=== PATIENT | female | born 1990 ===

== ENCOUNTER 2019-08-17 11:35 | Inpatient (IN) ==
[2019-08-17] MEDS ORDERED: LACTATED RINGER'S 1,000 ML IV PRN (12:08)
[2019-08-17] MEDS ORDERED: OXYTOCIN 30 UNITS/500 ML BAG IV PRN ×2 (12:08→15:45)
--- NOTE | 2019-08-17 12:15 | Obstetrical Progress Note ---
Date of Service August 17, 2019 Physical Exam Physical Exam: Admit Note 29 F P2002 at term admitted to L&D in active labor. Cervix4-5/100/-2/vertex. GBS is negative. FHT Cat 1. No membranes felt so probable spontaneous rupture at home. Will admit in labor. Anticipate normal delivery.
[2019-08-17 12:33] LABS: Hematocrit (blood only) 37.4 % (37-47); Mean Corpuscular Hemoglobin 29.3 pg (25-34); Mean Corpuscular Volume 84.4 fL (80-100); Mean Platelet Volume 9.9 fL (7.4-10.4); Platelet Count 180 K/uL (130-400); RDW Coefficient of Variation 12.7 % (11.5-14.5); RDW Standard Deviation 38.9 fL (36.4-46.3); Red Blood Count 4.43 M/uL (4.2-5.4); White Blood Count 9.74 K/uL (4.8-10.8)
[2019-08-17 12:37] LABS: Mean Corpuscular Hgb Conc 34.8 g/dL (32-36)
[2019-08-17] MEDS ORDERED: ePHEDrine sulfate 50 MG/ML AMP ONE (13:12)
[2019-08-17] MEDS ORDERED: BUPIVACAINE 0.25% 30 ML VIAL ONE (13:12)
[2019-08-17] MEDS ORDERED: fentaNYL citrate 100 MCG/2 ML VIAL ONE (13:13)
[2019-08-17] MEDS ORDERED: fentaNYL 2MCG/ML ROPIV 1.25MG/ML 100 ML BAG EPI ONE (13:13)
[2019-08-17] MEDS ORDERED: DiphenhydrAMINE HCL 50 MG/ML VIAL IV PRN (13:32)
[2019-08-17] MEDS ORDERED: ePHEDrine sulfate 50 MG/ML AMP IV PRN (13:32)
[2019-08-17] MEDS ORDERED: NALOXONE HCL 1 MG in SODIUM CHLORIDE 0.9% 1000ML 1,000 ML IV PRN (13:32)
[2019-08-17] MEDS ORDERED: fentaNYL 2MCG/ML ROPIV 1.25MG/ML 100 ML BAG EPI PRN (13:32)
[2019-08-17] MEDS ORDERED: NALOXONE HCL 0.4 MG/1 ML VIAL/CARP IV PRN (13:32)
[2019-08-17] MEDS ORDERED: ONDANSETRON INJ 2 MG/ML 2 ML VIAL IV PRN (13:32)
[2019-08-17] MEDS ORDERED: NALBUPHINE HCL INJ 10 MG/ML AMP IV PRN (13:32)
--- NOTE | 2019-08-17 13:34 | Anesthesiology Consultation ---
Date of Service August 17, 2019 Assessment & Plan Chart Review Chart Review: Patient NOT seen in Pre Admission Testing and Acceptable Risk for Labor Epidural Consults Requested none ASA ASA2 Proposed Anesthesia Anesthesia Type: Labor Epidural and CSE Risk / Benefits Reviewed With: PT / POA / Parent / Guardian, Accepts Plan and Informed Consent Obtained History Height/Weight Height: 5 ft 7 in Weight: 67.3 kg Allergies Allergy/AdvReac Type Severity Reaction Status Date / Time No Known Allergies Allergy Unverified 08/17/19 12:23 Medications Home Medications Medication Instructions Recorded Confirmed Last Taken vit no.[id number]-[id number] 1 tab PO DAILY 08/17/19 08/17/19 08/16/19 08:00 [ Vitamin] Active Medications Generic Name Dose Route Start Last Admin Trade Name Freq PRN Reason Stop Dose Admin Lactated Ringer's 1,000 mls @ 125 mls/hr 08/17/19 12:08 08/17/19 13:07 Lr IV 08/19/19 12:07 999 mls/hr .Q8H PRN Administration L&D Protocol Protocol NPO Date Last Intake of Fluids: 08/17/19 Time Last Intake of Fluids: 13:00 Date Last Intake of Solids: 08/16/19 Time Last Intake of Solids: 17:00 Past Medical History Medical History Recent childbirth (~11/13/13) Recent childbirth (~12/25/11) Exercise / Class Metabolic Activity II 4-5 Yardwork/Stairs/Walk up hill Past Surgical History Surgical History S/P hernia repair (~89) Past Anesthesia History No Hx of Anesthesia Complications and No Family Hx of Anesthesia Complications History of PONV No Hx of PONV and No Hx of Motion Sickness Social History Smoking Status: Never smoker Do You Dip or Chew Tobacco: No Hx Alcohol Use: No Hx Substance Use: No Review of Systems no chest pain or sob Physical Exam Vital Signs Last Vital Signs Temp 36.4 C L 08/17/19 12:31 Pulse 86 08/17/19 13:35 Resp 20 08/17/19 12:31 BP 123/79 08/17/19 12:37 Pulse Ox 94 08/17/19 13:35 ENMT Mouth: no TMJ abnormality Thyromental Distance: > or= 3.5 Finger Breadths Mallampati Class: II Neck normal visual inspection Respiratory normal respiratory effort Auscultation: lungs clear to auscultation bilaterally Cardiovascular Rate/Rhythm: regular rate and regular rhythm Musculoskeletal Spine: normal cervical ROM Neurologic moves all extremities Psychiatric Orientation: alert and oriented x 3 Testing Laboratory Results 08/17/19 12:23
--- NOTE | 2019-08-17 15:00 | Delivery Summary ---
Vaginal Delivery Summary Date of Service August 17, 2019 Vaginal Delivery Summary Delivery Note live male LYNN over intact perineum with delayed cord clamping Apgars 8/9 weight pending. Cord blood obtained followed by spontaneous delivery of intact placenta. No tears. EBL 100 ml. Final sponge and instrument count are correct. Mom and baby stable.
[2019-08-17] MEDS ORDERED: SUPERCREAM 0.870% 15 GM JAR EXT PRN (15:45)
[2019-08-17] MEDS ORDERED: DIPHTHERIA/TETANUS/PERTUSSIS 0.5 ML SYR/VIAL IM ONE (15:45)
[2019-08-17] MEDS ORDERED: BENZOCAINE 20% AER SPR 82.5 GM CAN EXT PRN (15:45)
[2019-08-17] MEDS ORDERED: IBUPROFEN 600 MG TAB PO PRN (15:45)
[2019-08-17] MEDS ORDERED: bisacodyL 10 MG SUPP PR PRN (15:45)
[2019-08-17] MEDS ORDERED: ACETAMINOPHEN 325 MG TAB PO PRN (15:45)
[2019-08-17] MEDS ORDERED: HYDROCORTISONE ACETATE 25 MG SUPP PR PRN (15:45)
--- NOTE | 2019-08-17 16:08 | Anesthesia Procedure Note ---
Date of Service August 17, 2019 Anesthesia Post Epidural Note Vital Signs Vital Signs: Temp Pulse Resp BP Pulse Ox 36.4 C L 61 16 132/63 99 08/17/19 14:43 08/17/19 15:58 08/17/19 14:43 08/17/19 15:58 08/17/19 14:40 Pain Intensity Abdomen: Pain Intensity: 0 Notes Mental Status: alert / awake / arousable and participated in evaluation Nausea / Vomiting: adequately controlled Pain: adequately controlled Airway Patency, RR, SpO2: stable & adequate BP & HR: stable & adequate Hydration State: stable & adequate Neuraxial Anesthesia: was administered and sensory block is resolving Anesthetic Complications: no major complications apparent and Pt Satisfied with anesthetic care Epidural: Removed without complications and With tip intact
[2019-08-17] MEDS ORDERED: HYDROCORTISONE 1% CRM 30 GM TUBE EXT PRN (19:12)
[2019-08-17] MEDS: DOCUSATE SODIUM 100 MG CAP PO SCH (20:16)
[2019-08-18 05:49] LABS: Hematocrit (blood only) 33.6 % (37-47); Hemoglobin 11.5 g/dL (12.0-16.0); Mean Corpuscular Hemoglobin 29.4 pg (25-34); Mean Corpuscular Hgb Conc 34.2 g/dL (32-36); Mean Corpuscular Volume 85.9 fL (80-100); Mean Platelet Volume 9.7 fL (7.4-10.4); Platelet Count 169 K/uL (130-400); RDW Coefficient of Variation 12.9 % (11.5-14.5); RDW Standard Deviation 40.1 fL (36.4-46.3); Red Blood Count 3.91 M/uL (4.2-5.4); White Blood Count 11.35 K/uL (4.8-10.8)
--- NOTE | 2019-08-18 07:56 | Obstetrical Progress Note ---
Date of Service August 18, 2019 Assessment & Plan Admission and Anticipated Discharge Date Admission Date: August 17, 2019 Subjective Patient is seen and examined. She feels well, no complaints. Wants to be discharged today Ambulating without dizziness Voiding without difficulty Tolerating regular diet with out N&V Bleeding is minimal No fever/ chills/ CP/ SOB/ N&V/ Leg pain Breast feeding without problems Vital Signs Temp Pulse Pulse Pulse Resp BP BP 08/18/19 07:10 36.7 C 68 16 115/76 08/18/19 03:50 36.7 C 68 18 108/70 08/17/19 23:15 36.8 C 73 18 108/68 08/17/19 19:15 36.5 C 84 20 113/72 08/17/19 17:20 100 H 22 118/64 08/17/19 16:58 100 H 118/64 08/17/19 16:43 96 H 117/61 08/17/19 16:28 78 115/57 L 08/17/19 16:13 62 117/58 L 08/17/19 15:58 61 132/63 08/17/19 15:43 65 151/91 H 08/17/19 15:28 67 125/75 08/17/19 15:13 75 120/68 08/17/19 14:58 100 H 113/69 08/17/19 14:43 36.4 C L 101 H 16 109/68 08/17/19 14:40 123 H 08/17/19 14:37 118 H 08/17/19 14:35 116 H 08/17/19 14:30 92 H 08/17/19 14:28 83 116/70 08/17/19 14:25 92 H 08/17/19 14:20 84 08/17/19 14:15 83 08/17/19 14:14 73 105/63 08/17/19 14:10 93 H 08/17/19 14:05 89 08/17/19 14:00 95 H 08/17/19 13:58 96 H 103/64 08/17/19 13:56 100 H 98/51 L 08/17/19 13:55 94 H 08/17/19 13:54 80 119/60 08/17/19 13:52 85 90/54 L 08/17/19 13:50 69 08/17/19 13:48 36.6 C 115 H 20 116/80 08/17/19 13:45 120 H 08/17/19 13:40 119 H 08/17/19 13:35 86 08/17/19 12:37 92 H 123/79 08/17/19 12:31 36.4 C L 92 H 20 123/79 Pulse Ox 08/18/19 07:10 96 08/18/19 03:50 96 08/17/19 23:15 97 08/17/19 19:15 97 08/17/19 17:20 08/17/19 16:58 08/17/19 16:43 08/17/19 16:28 08/17/19 16:13 08/17/19 15:58 08/17/19 15:43 08/17/19 15:28 08/17/19 15:13 08/17/19 14:58 08/17/19 14:43 08/17/19 14:40 99 08/17/19 14:37 90 08/17/19 14:35 99 08/17/19 14:30 100 08/17/19 14:28 08/17/19 14:25 100 08/17/19 14:20 100 08/17/19 14:15 100 08/17/19 14:14 08/17/19 14:10 100 08/17/19 14:05 100 08/17/19 14:00 99 08/17/19 13:58 08/17/19 13:56 08/17/19 13:55 97 08/17/19 13:54 08/17/19 13:52 08/17/19 13:50 100 08/17/19 13:48 08/17/19 13:45 98 08/17/19 13:40 100 08/17/19 13:35 94 08/17/19 12:37 08/17/19 12:31 Lab Results 08/17/19 08/18/19 Range/Units 12:23 05:37 WBC 9.74 11.35 H (4.8-10.8) K/uL RBC 4.43 3.91 L (4.2-5.4) M/uL Hgb 13.0 11.5 L (12.0-16.0) g/dL Hct 37.4 33.6 L (37-47) % MCV 84.4 85.9 (80-100) fL MCH 29.3 29.4 (25-34) pg MCHC 34.8 34.2 (32-36) g/dL RDW Std Deviation 38.9 40.1 (36.4-46.3) fL RDW Coeff of Meño 12.7 12.9 (11.5-14.5) % Plt Count 180 169 (130-400) K/uL MPV 9.9 9.7 (7.4-10.4) fL PE: General: Alert, orientedx3, NAD Abd: soft, NT, fundus firm, below Umbilicus Perineum intact, Lochia rubra minimal Ext; NT, no edema AP: 29 yo s/p , ppd# 1 VSS Afebrile doing well Continue routine care All questions were answered Discussed when to call D/C home tonight Results & Data ([facility]) Vital Signs (Past 12 Hours) Vital Signs Temp Pulse Pulse Resp BP Pulse Ox 08/18/19 07:10 36.7 C 68 16 115/76 96 08/18/19 03:50 36.7 C 68 18 108/70 96 08/17/19 23:15 36.8 C 73 18 108/68 97
[2019-08-18] MEDS ORDERED: PRENATAL VITAMIN 1 TAB PO SCH ×2 (08:00→09:00)
[2019-08-18] MEDS ORDERED: FERROUS SULFATE 325 MG TAB PO SCH (08:00)
[2019-08-18] MEDS: DOCUSATE SODIUM 100 MG CAP PO SCH (08:33)
[2019-08-18] MEDS ORDERED: bisacodyL 5 MG TABEC PO SCH (20:00)
== END 2019-08-18 16:00 | disposition home or self-care (01) | DRG 807 ==
LOC: OPB 11:35 → 4S1 11:35 → 4S2 18:41

== ENCOUNTER 2021-10-13 22:04 | Inpatient (IN) ==
[2021-10-13] MEDS ORDERED: OXYTOCIN 30 UNITS/500 ML BAG IV PRN (22:28)
[2021-10-13] MEDS ORDERED: LACTATED RINGER'S 1,000 ML IV PRN (22:28)
--- NOTE | 2021-10-13 22:30 | History & Physical Report ---
Date of Service October 13, 2021 Assessment & Plan (1) 40 weeks gestation of : Plan: Admit, routine labs IV fluids, epidural as patient request Plan for AROM after, anticipate spontaneous vaginal delivery (2) COVID-19 affecting in third trimester: Admission and Anticipated Discharge Date Admission Date: 10/13/2021 History of Present Illness Chief Complaint: Contractions Primary Care Provider: Max Marsh MD Patient is a 31-year-old -0-0-3 at 40 weeks and 0 days who presents after calling the answering service for worsening contractions that started at 6 PM and now every 4 to 5 minutes. Denies leaking of fluid or vaginal bleeding. Notes good movement. Was checked in clinic earlier today and had her membranes stripped and she was 3 cm dilated. She denies headache, blurry vision, right upper quadrant or epigastric pain. Otherwise feeling well. No other complaints at this time. Only complications this was COVID-19 in the third trimester Allergies Allergy/AdvReac Type Severity Reaction Status Date / Time No Known Allergies Allergy Unverified 08/17/19 12:23 Home Medications Medication Instructions Recorded Confirmed Type vits no.124-ferrous fum 1 tab PO DAILY 08/17/19 10/13/21 History 27 mg iron-folic acid 800 mcg tablet ( Vitamin) breast pump #1 ea 08/18/19 Rx Patient History Medical History (Updated 10/13/21 @ 22:38 by Sandee Murphy MD, PhD) Recent childbirth (~11/13/13) Recent childbirth (~12/25/11) Surgical History S/P hernia repair (~89) Social History Smoking Status: Never smoker Second Hand Exposure: No; Hx Alcohol Use: No Hx Substance Use: No Preferred Language: Faroese Communication Ability: Effective Gore Seamer Required: No Beliefs That Will Affect Care: None marital status: Current Living Situation: Family Other Information That Helps Us Care for You: No Feels Safe at Home: Yes Safety Concerns: Feels Safe At This Time Assistive Devices: None OB History See record [employer] DIRECTOR History See record Review of Systems All systems reviewed & are unremarkable except as noted in HPI & below Physical Exam Constitutional: WD/WN, vitals as above Respiratory: normal respiratory effort, lungs clear to auscultation Cardiovascular: RRR, no murmur, no edema Gastrointestinal (Abdomen): normal bowel sounds, soft, nontender, no hepatosplenomegaly EFW 3500g Genitourinary: Cervix: 5/100/-1 with bulging bag checked by RN Results & Data ([facility]) Vital Signs (Past 12 Hours) Vital Signs Temp Pulse Resp BP 10/13/21 22:13 36.6 C 18 10/13/21 22:11 90 128/86 Monitoring External Monitor heart tracing: Baseline 155, moderate variability, positive accelerations, variable decelerations, category 2 tracing Tocodynamometer Tocometer: contractions every 3 to 4-minute
[2021-10-13] MEDS ORDERED: ePHEDrine sulfate 50 MG/ML AMP ONE (22:50)
[2021-10-13] MEDS ORDERED: LIDOCAINE 2%/EPINEPHRINE 1:200,000 20 ML SDV ONE (22:51)
[2021-10-13] MEDS ORDERED: SODIUM CHLORIDE 0.9% INJ 10 ML VIAL ONE (22:51)
[2021-10-13] MEDS ORDERED: fentaNYL citrate 100 MCG/2 ML VIAL ONE (22:51)
[2021-10-13] MEDS ORDERED: BUPIVACAINE 0.25% 30 ML VIAL ONE (22:51)
[2021-10-13] MEDS ORDERED: fentaNYL 2MCG/ML ROPIVACAINE 1.25MG/ML 100 ML BAG EPI ONE (22:51)
[2021-10-13 22:56] LABS: Hematocrit (blood only) 34.6 % (34.1-44.9); Hemoglobin 11.6 g/dl (12.0-16.0); Mean Corpuscular Hemoglobin 28.6 pg (25.0-34.0); Mean Corpuscular Hgb Conc 33.5 g/dL (32.0-36.0); Mean Corpuscular Volume 85.2 fL (80.0-100.0); Mean Platelet Volume 9.6 fL (9.4-12.3); Platelet Count 192 K/uL (130-400); RDW Coefficient of Variation 12.3 % (11.5-14.5); RDW Standard Deviation 37.9 fL (36.4-46.3); Red Blood Count 4.06 M/uL (3.93-5.22); White Blood Count 8.19 K/ul (4.8-10.8)
[2021-10-13] MEDS ORDERED: ERYTHROMYCIN OP OINT 1 GM PKT ONE (23:42)
[2021-10-13] MEDS ORDERED: NALOXONE HCL 1 MG in SODIUM CHLORIDE 0.9% 1000ML 1,000 ML IV PRN (23:46)
[2021-10-13] MEDS ORDERED: NALBUPHINE HCL INJ 10 MG/ML AMP IV PRN (23:46)
[2021-10-13] MEDS ORDERED: PROMETHAZINE HCL 6.25 MG in SODIUM CHLORIDE 0.9% 50 ML IV PRN (23:46)
[2021-10-13] MEDS ORDERED: ONDANSETRON INJ 2 MG/ML 2 ML VIAL IV PRN (23:46)
[2021-10-13] MEDS ORDERED: diphenhydrAMINE 50 MG/ML VIAL IV PRN (23:46)
[2021-10-13] MEDS ORDERED: ePHEDrine sulfate 50 MG/ML AMP IV PRN (23:46)
[2021-10-13] MEDS ORDERED: fentaNYL 2MCG/ML ROPIVACAINE 1.25MG/ML 100 ML BAG EPI PRN (23:46)
[2021-10-13] MEDS ORDERED: NALOXONE HCL 0.4 MG/1 ML VIAL/CARP IV PRN (23:46)
--- NOTE | 2021-10-13 23:46 | Anesthesiology Consultation ---
Date of Service October 13, 2021 Assessment & Plan Chart Review Chart Review: Acceptable Risk for Surgery and Patient NOT seen in Pre Admission Testing Consults Requested none ASA ASA2 Proposed Anesthesia Anesthesia Type: Labor Epidural and CSE Risk / Benefits Reviewed With: PT / POA / Parent / Guardian, Accepts Plan and Informed Consent Obtained History Height/Weight Height: 5 ft 7 in Weight: 78.471 kg Allergies Allergy/AdvReac Type Severity Reaction Status Date / Time No Known Allergies Allergy Unverified 08/17/19 12:23 Medications Home Medications Medication Instructions Recorded Confirmed Last Taken vits no.124-ferrous fum 1 tab PO DAILY 08/17/19 10/13/21 10/12/21 27 mg iron-folic acid 800 mcg tablet ( Vitamin) breast pump #1 ea 08/18/19 Unknown Active Medications Generic Name Dose Route Start Last Admin Trade Name Freq PRN Reason Stop Dose Admin Lactated Ringer's 1,000 mls @ 125 mls/hr 10/13/21 22:28 10/13/21 23:25 Lr IV 10/15/21 22:27 125 mls/hr .Q8H PRN Infusion L&D Protocol Protocol Past Medical History Medical History (Updated 10/13/21 @ 22:38 by Sandee Murphy MD, PhD) Recent childbirth (~11/13/13) Recent childbirth (~12/25/11) Exercise / Class Metabolic Activity II 4-5 Yardwork/Stairs/Walk up hill Past Surgical History Surgical History S/P hernia repair (~89) Past Anesthesia History No Hx of Anesthesia Complications and No Family Hx of Anesthesia Complications History of PONV No Hx of PONV and No Hx of Motion Sickness Social History Smoking Status: Never smoker Hx Alcohol Use: No Hx Substance Use: No substance use type: does not use Physical Exam Vital Signs Last Vital Signs Temp 36.6 C 10/13/21 22:13 Pulse 85 10/13/21 23:43 Resp 18 10/13/21 22:13 BP 109/65 10/13/21 23:43 Pulse Ox 97 10/13/21 23:41 ENMT Mouth: no dentition abnormality Thyromental Distance: > or= 3.5 Finger Breadths Mallampati Class: II Neck normal visual inspection Respiratory normal respiratory effort Auscultation: lungs clear to auscultation bilaterally Cardiovascular Rate/Rhythm: regular rate and regular rhythm Psychiatric Orientation: alert Testing Laboratory Results 10/13/21 22:44 Blood Type A Positive 10/13/21 22:44 Antibody Screen NEGATIVE 10/13/21 22:44
--- NOTE | 2021-10-13 23:59 | Labor Progress Brief Note ---
Date of Service October 13, 2021 Subjective Patient comfortable on epidural at this time Assessment & Plan (1) 40 weeks gestation of : Plan: Anticipate spontaneous vaginal delivery (2) COVID-19 affecting in third trimester: Admission and Anticipated Discharge Date Admission Date: October 13, 2021 Physical Exam Constitutional: WD/WN, vitals as above Respiratory: normal respiratory effort, lungs clear to auscultation Cardiovascular: RRR, no murmur, no edema Gastrointestinal (Abdomen): normal bowel sounds, soft, nontender, no hepatosplenomegaly Genitourinary: heart tracing: Baseline 130, moderate variability, deceleration, category 2 tracing Tocometer: Contractions every 2 to 3 minutes Cervix: 7/100/0 station, AROM performed with blood-tinged fluid, no cord felt, no complication Results & Data ([facility]) Vital Signs (Past 12 Hours) Vital Signs Temp Pulse Resp BP Pulse Ox 10/13/21 23:51 92 H 116/76 99 10/13/21 23:49 81 112/68 10/13/21 23:47 83 112/70 10/13/21 23:46 91 H 97 10/13/21 23:45 89 112/67 10/13/21 23:43 85 109/65 10/13/21 23:41 85 114/67 97 10/13/21 23:39 78 117/62 10/13/21 23:38 92 H 122/75 10/13/21 23:36 109 H 99 10/13/21 23:31 127 H 100 10/13/21 22:13 36.6 C 18 10/13/21 22:11 90 128/86
[2021-10-14] MEDS ORDERED: CALCIUM CARBONATE 500 MG CHEWABLE TAB PO PRN (00:23)
[2021-10-14] MEDS ORDERED: CALCIUM CARBONATE 500 MG CHEWABLE TAB ONE (00:27)
[2021-10-14] MEDS ORDERED: HYDROCORTISONE ACETATE 25 MG SUPP PR PRN (01:26)
[2021-10-14] MEDS ORDERED: ACETAMINOPHEN 325 MG TAB PO PRN (01:26)
[2021-10-14] MEDS ORDERED: BENZOCAINE 20% AER SPR 82.5 GM CAN EXT PRN (01:26)
[2021-10-14] MEDS ORDERED: DIPHTHERIA/TETANUS/PERTUSSIS 0.5 ML SYR/VIAL IM ONE (01:26)
[2021-10-14] MEDS ORDERED: OXYTOCIN 30 UNITS/500 ML BAG IV PRN (01:26)
[2021-10-14] MEDS ORDERED: bisacodyL 10 MG SUPP PR PRN (01:26)
--- NOTE | 2021-10-14 01:29 | Delivery Summary ---
Vaginal Delivery Summary Date of Service October 14, 2021 Vaginal Delivery Summary Delivery Note Called by nrusing staff, as patient was compelete Delivery Summary: Patient was placed in the dorsal lithotomy position. She was prepped and draped in the usual sterile fashion. Upon maternal pushing the head was delivered atraumatically followed by the anterior shoulders, posterior shoulders then the remainder of the infants body. The infants mouth and nose were bulb suction below the level of the perineum. A female infant was delivered at 0119, weight pending with APGARS of 8 at 1 minute and 9 at 5 minutes. The umbilical cord was clamped times two and cut after 1 min of delayed cord clamping. The infant was handed off to the awaiting nursing staff. Cord blood was obtained. The placenta delivered intact with three vessel cord. Placenta was sent to pathology. Thirty units of Pitocin were added to the IV fluid and allowed to run freely. Uterine massage was performed until uterus was deemed firm. Upon inspection of the perineum, vagina and cervix were intact. Upon re-inspection the patient was hemostatic. Uterus again massaged and found to be firm. Needle and sponge counts were correct. Patient was stable and allowed to recover in L&D room. was stable and remained in room with mother in the Family Care Unit. EBL 300mls
--- NOTE | 2021-10-14 07:45 | Anesthesia Procedure Note ---
Date of Service October 14, 2021 Anesthesia Post Epidural Note Vital Signs Vital Signs: Temp Pulse Resp BP Pulse Ox 36.9 C 74 16 108/68 97 10/14/21 03:45 10/14/21 03:45 10/14/21 03:45 10/14/21 03:45 10/14/21 03:45 Notes Mental Status: alert / awake / arousable Patient Amnestic to Procedure: No Nausea / Vomiting: adequately controlled Pain: adequately controlled Airway Patency, RR, SpO2: stable & adequate BP & HR: stable & adequate Hydration State: stable & adequate Neuraxial Anesthesia: sensory block resolved Anesthetic Complications: no major complications apparent and Pt Satisfied with anesthetic care Epidural: Removed without complications and With tip intact
[2021-10-14] MEDS: DOCUSATE SODIUM 100 MG CAP PO SCH ×2 (08:07→21:12)
[2021-10-14] MEDS: IBUPROFEN 600 MG TAB PO PRN ×2 (08:08→17:31)
[2021-10-14] MEDS: PRENATAL VITAMIN 1 TAB PO SCH (08:08)
--- NOTE | 2021-10-14 18:05 | Obstetrical Progress Note ---
Date of Service October 14, 2021 Assessment & Plan (1) Normal course: PPD off Pt doing well wishes to be discharged early in AM Subjective Ambulation: ambulating normally Voiding: no voiding problems Passing Gas:: Yes Diet Tolerance:: regular diet Lochia:: Small Feeding Type:: breast feeding Review of Systems All systems reviewed & are unremarkable except as noted in HPI & below Physical Exam Constitutional WD/WN, vitals as above well developed and well nourished Eyes PERRL, conjunctivae normal, anicteric sclerae Neck trachea midline, no thyromegaly Respiratory normal respiratory effort, lungs clear to auscultation Auscultation: no crackles, no rales and no wheezes Cardiovascular RRR, no murmur, no edema Gastrointestinal (Abdomen) normal bowel sounds, soft, nontender, no hepatosplenomegaly Uterus is below umbilicus Musculoskeletal no cyanosis or clubbing, extremities motor strength 5/5 Skin no rashes, warm and dry Neurologic patellar DTR's 2+ bilat, sensation intact Psychiatric A+Ox3, euthymic affect Genitourinary normal external appearance Results & Data ([facility]) Vital Signs (Past 12 Hours) Vital Signs Temp Pulse Resp BP Pulse Ox 10/14/21 17:30 36.5 C 55 L 16 125/82 100 10/14/21 13:30 36.7 C 62 22 115/72 10/14/21 08:05 36.6 C 61 21 109/73
[2021-10-15] MEDS: IBUPROFEN 600 MG TAB PO PRN (00:20)
[2021-10-15 06:39] LABS: Hematocrit (blood only) 33.3 % (34.1-44.9); Mean Corpuscular Hemoglobin 28.4 pg (25.0-34.0); Platelet Count 161 K/uL (130-400); RDW Coefficient of Variation 12.8 % (11.5-14.5); RDW Standard Deviation 39.8 fL (36.4-46.3); Red Blood Count 3.87 M/uL (3.93-5.22); White Blood Count 6.29 K/ul (4.8-10.8)
[2021-10-15] MEDS: PRENATAL VITAMIN 1 TAB PO SCH (08:14)
[2021-10-15] MEDS: DOCUSATE SODIUM 100 MG CAP PO SCH (08:14)
[2021-10-15] MEDS ORDERED: bisacodyL 5 MG TABEC PO SCH (20:00)
== END 2021-10-15 08:45 | disposition home or self-care (01) | DRG 807 ==
LOC: OPB 22:04 → 4S1 22:08 → 4E2 10-14 04:01